=== PATIENT | male | born 1975 | race Two or more races ===

== ENCOUNTER 2020-05-22 16:39 | Emergency (ER) | payer MEDICARE, MEDICAID, SELFPAY ==
[2020-05-22 16:49] VITALS: BP 131/78; PULSE 99; RESP 16; TEMP 37.4; O2SAT 99; BMI 35.2
--- NOTE | 2020-05-22 16:56 | XR_ITS ---
EXAMINATION: XR CHEST CLINICAL INFORMATION: Chest pain COMPARISON: 08/13/2013 TECHNIQUE: Frontal view of the chest was obtained. FINDINGS: No significant abnormality is noted involving the heart, lungs, mediastinum, bony thorax or soft tissues. Some left basilar atelectasis is present. XR/XR chest 1V IMPRESSION: No acute intrathoracic disease.
--- NOTE | 2020-05-22 16:58 | ED.FEVER ---
HPI - Fever General Chief Complaint: Fever Stated Complaint: fever - [phone] Time Seen by Provider: 05/22/20 16:56 Source: patient Mode of arrival: ambulatory Limitations: no limitations History of Present Illness HPI Narrative: Subjective fevers, chills, body aches, dry cough, intermittent chest pain x 2 days. No SOB, leg swelling or pain. Has two coworkers who have similar symptoms and recently traveled. Worried about COVID exposure. MD elicited complaint: fever (subjective ) Onset (ago): day(s) Context: sick contacts Exacerbating factors: nothing Relieving factors: nothing Associated symptoms: chills, myalgias, cough and chest pain Treatments prior to arrival fever: none Related Data Previous Rx's Medication Instructions Recorded acetaminophen 650 mg PO Q6H PRN #20 cap 05/22/20 benzonatate [Tessalon Perles] 100 mg PO BID PRN #10 cap 05/22/20 ibuprofen 600 mg PO Q8H PRN #20 tab 05/22/20 Allergies Allergy/AdvReac Type Severity Reaction Status Date / Time No Known Allergies Allergy Unverified 04/10/20 15:05 Review of Systems Review of Systems: Yes all other systems are reviewed and are negative Constitutional: Constitutional: Reports no additional constitutional complaints, Reports body ache(s), Reports chills, Reports fever(s), Denies headache(s) and Denies weakness Eyes: Eyes: Reports no additional eye complaints and Denies change in vision ENT: Reports system reviewed and no additional complaints, except as documented, Denies dizziness, Denies headache(s), Denies nasal congestion, Denies nasal discharge and Denies neck pain Cardiovascular: Cardiovascular: Reports no additional cardiovascular complaints, Reports chest pain, Denies leg edema and Denies dyspnea Respiratory: Respiratory: Reports no additional respiratory complaints, Reports cough and Denies dyspnea Gastrointestinal: Gastrointestinal: Reports no additional gastrointestinal complaints, Denies abdominal pain, Denies diarrhea, Denies nausea and Denies vomiting Genitourinary: Genitourinary: Denies urinary incontinence Musculoskeletal: Musculoskeletal: Reports no additional musculoskeletal complaints, Denies back pain, Denies arthralgias, Denies joint swelling, Denies neck pain, Denies numbness and Denies tingling Integumentary/Breasts: Skin/Breast: Reports system reviewed and no additional complaints, except as docu and Denies rash Neurologic: Reports system reviewed and no additional complaints, except as documented, Denies Abnormal speech present, Denies dizziness, Denies headache(s), Denies numbness, Denies tingling and Denies weakness PMFSH Past Medical History Attestation statement: The following information was validated with the patient. Source: old records reviewed and obtained from family Medical History Hyperthyroidism No known health problems Social History Social History Alcohol intake: never Smoking Status: Smoker, status unknown Smoked in Last 30 Days: No Use of substances other than those prescribed or required for medical reasons: No Advance Directives: No Advance Directives Information Provided: No Physical Exam Vital Signs: Vital Signs: Vital Signs Temp Pulse Resp BP Pulse Ox 05/22/20 16:49 99.4 F 99 16 131/78 99 Body Mass Index 35.2 Const: General: cooperative, healthy appearing, comfortable and no acute distress Orientation/consciousness: patient oriented x3 Limitations: no limitations HENMT: Head: Yes normal to inspection Ears: hearing grossly normal bilaterally General nose exam: Normal external nose present Face and sinus: Yes normal facial exam Mouth: Normal oral and palatal mucosa present Throat: Yes posterior oropharynx normal Eyes: General: appearance normal, both eyes and all related structures Pupils: Equal, round and reactive pupils present Neck: Neck: Yes normal visual inspection Chest: Chest palpation & inspection: normal inspection of the chest and tenderness (central chest tender to palp, worsened with deep breathing/palpation/moveme) Resp: Effort & Inspection: normal respiratory effort Auscultation: clear to auscultation bilaterally Cardio: Rate: regular rate Rhythm: regular rhythm Peripheral pulses: Peripheral pulses 2+ throughout GI: Inspection: Yes normal to inspection Palpation (GI): Soft to palpation and nontender Auscultation: normal bowel sounds Back/Spine/Pelvis: Thoracic/Lumbar Spine: thoracic and lumbar spine normal to inspection Skin: General skin exam: no rashes or lesions noted Neuro: General: patient oriented x3, no focal motor deficits and normal sensation to monofilament Cranial nerves: Yes Equal, round and reactive pupils present Cognition (Neuro): normal cognition Speech: No Abnormal speech present Gait exam (Neuro): Normal gait present Motor exam (neuro): 11/26 motor strength present throughout Extrem: General: Yes normal to inspection Course Course Course Narrative: Cough, reproducible chest pain, subjective fevers, chills, body aches x 2 days with sick exposure at work. Will send COVID testing, check CXR and EKG. 174-CXR unremarkable. EKG unremarkable. Likely viral infection, chest wall strain secondary to coughing. Stable vital signs. Well appearing. Reviewed worrisome signs and symptoms of when to return to the emergency department. Comfortable discharge home. MDM - Fever MDM Narrative Medical decision making narrative: Viral syndrome, COVID infection, PNA, PE, ACS Likely viral syndrome. Considered COVID infection and testing is pending. Less likely pneumonia with unremarkable chest x-ray. Less likely PE with PERC score 0. Less likely ACS with unremarkable EKG, atypical symptoms not concerning for ACS (intermittent x 2 days, reproducible, MS on exam), age <45 and no cardiac risk factors. Medical Records Attestation: I reviewed the patient's medical records. Lab Data Attestation: I reviewed the patient's lab results. Imaging Data Chest x-ray: Attestation: I personally reviewed and interpreted this imaging study as follows: Radiologist's impression: EXAMINATION: XR CHEST CLINICAL INFORMATION: Chest pain COMPARISON: 08/13/2013 TECHNIQUE: Frontal view of the chest was obtained. FINDINGS: No significant abnormality is noted involving the heart, lungs, mediastinum, bony thorax or soft tissues. Some left basilar atelectasis is present. XR/XR chest 1V IMPRESSION: No acute intrathoracic disease. ECG Data ECG #1: Attestation: I personally reviewed and interpreted this ECG as follows: ECG interpretation date: 05/22/20 ECG interpretation time: 17:45 Interpretation: NSR, Normal NH, Normal QRS, Normal QT, early repolorization unchanged from previous 03/31/2019 Discharge Plan Discharge Clinical Impression: Viral infection Patient Disposition: Home, Self-Care Instructions: Viral Syndrome (ED) Additional Instructions: We have tested you today for COVID 19. Test results take 1-2 days and we will call you with the results negative or positive. Take tylenol or motrin if able as needed for pain or fever. Stay well hydrated with fluids like water, gatorade and/or powerade. Wash hands at home. If living with others try to self isolate if possible. If unable wear a mask around others in your home and wash hands frequently. If COVID test is positive you will need to self isolate for a total of 14 days from when your symptoms started. You may return to work sooner if testing is negative and all symptoms resolved >72 hours. You should return to the emergency department for severe shortness of breath, chest pain or fever which does not respond to both tylenol and motrin at home. Prescriptions: New ibuprofen 600 mg tablet 600 mg PO Q8H PRN (Reason: fever or pain) Qty: 20 RF: 0 acetaminophen 325 mg capsule 650 mg PO Q6H PRN (Reason: fever or pain) Qty: 20 RF: 0 benzonatate [Tessalon Perles] 100 mg capsule 100 mg PO BID PRN (Reason: cough) Qty: 10 RF: 0 Stand Alone Forms: Work/School Release
[2020-05-22] MEDS: Ibuprofen 600 MG TABLET PO (18:07)
== END 2020-05-22 18:22 | disposition home or self-care (01) ==
PROVIDERS: Nurse Practitioner Family; Emergency Provider Emergency Medicine; PCP Internal Medicine Endocrinology, Diabetes & Metabolism
DX: B34.9 Viral infection, unspecified (principal); Z20.828 Contact with and (suspected) exposure to other viral communicable diseases; R05 Cough
CPT/HCPCS: 71045; 99283; 99284; U0003

== ENCOUNTER 2020-10-18 21:24 | Emergency (ER) | payer MEDICARE, MEDICAID, SELFPAY ==
--- NOTE | 2020-10-18 21:49 | ED.URI ---
HPI - URI/Sore Throat General Chief Complaint: General Medical Stated Complaint: Covid symptoms Time Seen by Provider: 10/18/20 21:43 Source: patient Mode of arrival: ambulatory Limitations: no limitations History of Present Illness HPI Narrative: 45-year-old male with no significant past medical history presents with 1 day of sore throat, weakness, fatigue, fevers and chills. He has had multiple sick contacts. MD elicited complaint: fever, sore throat and rhinorrhea Onset (ago): day(s) (One) Consistency: constant Severity: moderate Description of mucous: clear Able to tolerate fluids by mouth: Yes Exacerbating factors: swallowing and speaking Relieving factors: nothing Context: sick contacts Associated symptoms: fever, chills and sore throat Treatments prior to arrival: none Related Data Previous Rx's Medication Instructions Recorded acetaminophen 650 mg PO Q6H PRN #20 cap 05/22/20 benzonatate [Tessalon Perles] 100 mg PO BID PRN #10 cap 05/22/20 ibuprofen 600 mg PO Q8H PRN #20 tab 05/22/20 amoxicillin-pot clavulanate 1 tab PO Q12H 10 Days #20 tab 10/18/20 [Augmentin] ibuprofen 600 mg PO Q6H PRN #60 tab 10/18/20 Allergies Allergy/AdvReac Type Severity Reaction Status Date / Time No Known Allergies Allergy Unverified 04/10/20 15:05 Review of Systems Review of Systems: Constitutional: positive Fever, positive Chills, positive fatigue, positive Malaise ENT/Mouth: positive sore throat, positive runny nose Eyes: No Discharge Cardiovascular: No Chest Pain, No SOB Respiratory: No Cough, No Sputum, No Wheezing, No Smoke Exposure, No Dyspnea Gastrointestinal: No Nausea, No Vomiting, No Diarrhea Genitourinary: no irregular bleeding, No Dysuria, No Urinary Frequency, No Hematuria, No Urinary Incontinence, No Urgency, No Flank Pain, Musculoskeletal: positive Myalgia Skin: No rash Neuro: No Headache Yes all other systems are reviewed and are negative [facility] Past Medical History Attestation statement: The following information was validated with the patient. Source: old records reviewed Medical History (Updated 10/18/20 @ 23:43 by Jewels Sotelo NP) Hyperthyroidism Social History Social History Alcohol intake: never Smoking Status: Light tobacco smoker Use of substances other than those prescribed or required for medical reasons: No Advance Directives: No Advance Directives Information Provided: No Physical Exam Vital Signs: Vital Signs: Last Vital Signs Temp 99 F 10/19/20 00:00 Pulse 101 H 10/19/20 00:00 Resp 16 10/19/20 00:00 BP 120/85 10/19/20 00:00 Pulse Ox 95 10/19/20 00:00 Body Mass Index 35.2 Appearance: Alert. Oriented X3. Moderate distress. Eyes: Pupils equal, round and reactive to light. ENT: Pharynx bilateral tonsillar swelling with exudates, and erythema. Bilateral tympanic membranes intact, no cervical lymphadenopathy noted. Neck: Normal inspection. Neck supple. No vertebral tenderness noted. CVS: Tachycardic heart rate and rhythm. Pulses normal. Respiratory: No respiratory distress. Lung sounds clear to auscultation all lobes. Abdomen: Soft and nontender. Skin: Skin warm and dry. Normal skin color. Normal skin turgor. Extremities: No lower extremity edema. Moves all extremities against resistance. Neuro: No motor deficit. No sensory deficit. No focal neural deficits. Cranial nerves 2-12 intact. Course Course Course Narrative: 45-year-old male presents with upper respiratory symptoms consistent with COVID-19 and or strep pharyngitis. Had pharyngeal erythema with bilateral tonsillar swelling with exudates. No cough noted. Centor scale 3. Test for and treat for strep pharyngitis. Will test for COVID-19. Patient is tachycardic at 122 and febrile, will give 1 L of fluids and Motrin with his Augmentin. Patient wants to wait for his COVID-19 test. Patient is strep positive. Patient is COVID negative. Patient verbalized understanding of and agrees plan care discharge home. MDM - URI/Sore Throat Differential Diagnosis Differential diagnosis: Likely upper respiratory infection, sinusitis, viral infection, bronchitis, influenza and pharyngitis Medical Records Attestation: I reviewed the patient's medical records. Lab Data Attestation: I reviewed the patient's lab results. Labs: Lab Results 10/18/20 Range/Units 22:38 Coronavirus (PCR) NEGATIVE (Negative) Influenza Type A (PCR) NEGATIVE (Negative) Influenza Type B (PCR) NEGATIVE (Negative) RSV RNA Qual (PCR) NEGATIVE (Negative) Discharge Plan Discharge Clinical Impression: Acute streptococcal pharyngitis, COVID-19 Patient Disposition: Home, Self-Care Instructions: Pharyngitis (ED), Strep Throat (ED), COVID-19 (Coronavirus Disease 2019) (ED) Additional Instructions: You evaluated for upper respiratory symptoms and sore throat. You tested positive for strep pharyngitis. Your COVID test was negative. Please take Augmentin twice a day as directed. Please complete the entire course of this medication. Use Tylenol and Motrin as needed for pain management. Thank you for choosing this emergency department for evaluation. Please follow-up with primary care physician as needed. Return to the emergency department for any new, concerning, or worsening symptoms. Prescriptions: New amoxicillin-pot clavulanate [Augmentin] 875-125 mg tablet 1 tab PO Q12H 10 Days Qty: 20 RF: 0 ibuprofen 600 mg tablet 600 mg PO Q6H PRN (Reason: fever or pain) Qty: 60 RF: 0 No Action ibuprofen 600 mg tablet 600 mg PO Q8H PRN (Reason: fever or pain) Qty: 20 RF: 0 acetaminophen 325 mg capsule 650 mg PO Q6H PRN (Reason: fever or pain) Qty: 20 RF: 0 benzonatate [Tessalon Perles] 100 mg capsule 100 mg PO BID PRN (Reason: cough) Qty: 10 RF: 0 Interventions: ED Discharge Assessment Last Done: 10/19/20 01:11 Discharge Date/Time: 10/19/20 01:13 Print Language: Georgian
[2020-10-18 21:50] VITALS: BP 121/79; PULSE 123; RESP 19; TEMP 38.1; O2SAT 97; BMI 35.2
[2020-10-18] MEDS: ondansetron HCL 4 MG/2 ML VIAL IVPUSH (22:45)
[2020-10-18] MEDS: 0.9 % Sodium Chloride 1,000 ML 999 ML IVCONT (22:45)
[2020-10-18] MEDS: Ibuprofen 600 MG TABLET PO (22:45)
[2020-10-18] MEDS: Amoxicillin/Potassium Clav 875 MG TABLET PO (22:45)
--- NOTE | 2020-10-18 22:48 | PC.NURSE ---
pt moved from nicolas bed to room 2 due to pts hr, manager cardiac applied pt sinus tach on monitor, vitals otherwise stable, iv inserted, pt medicated per order, respiratory panel obtained, throat culture obtained, will continue to monitor.
[2020-10-18 23:15] VITALS: PULSE 123
[2020-10-18 23:57] LABS: Influenza A PCR NEGATIVE (Negative); Influenza B PCR NEGATIVE (Negative); Resp Syncy Virus RNA Qual PCR NEGATIVE (Negative); SARS COV2 PCR INHOUSE NEGATIVE (Negative)
[2020-10-19] VITALS: BP 120/85; PULSE 101; RESP 16; TEMP 37.2; O2SAT 95
== END 2020-10-19 01:13 | disposition home or self-care (01) ==
PROVIDERS: Nurse Practitioner Family; Emergency Provider Emergency Medicine
DX: U07.1 COVID-19 (principal); J02.0 Streptococcal pharyngitis; R50.9 Fever, unspecified; M79.10 Myalgia, unspecified site
CPT/HCPCS: 0241U; 36415; 87880; 96365; 96375; 99284; J2405

== ENCOUNTER 2021-05-13 10:44 | Outpatient (REF) | payer MEDICARE, MEDICAID, SELFPAY ==
[2021-05-13 11:35] LABS: COVID-19 Test Negative (Negative)
== END 2021-05-13 10:45 | disposition home or self-care (01) ==
LOC: HO.LAB 10:44
PROVIDERS: Visit Provider Internal Medicine
DX: Z20.822 Contact with and (suspected) exposure to COVID-19 (principal)
CPT/HCPCS: 36415; 87635; C9803

== ENCOUNTER → 2021-07-14 13:26 | Outpatient (BNVA) | payer SELFPAY | PROVIDERS: Visit Provider Internal Medicine | DX: Z02.79 Encounter for issue of other medical certificate (principal) ==

== ENCOUNTER 2021-07-24 14:17 | Emergency (ER) | payer MEDICARE, MEDICAID, SELFPAY ==
[2021-07-24 15:00] LABS: COVID-19 Test Positive (Negative)
[2021-07-24 16:12] VITALS: BP 113/72; PULSE 102; RESP 18; TEMP 36.5; O2SAT 98
[2021-07-24 16:17] VITALS: BMI 33.5
--- NOTE | 2021-07-24 16:57 | ED_ITS ---
HPI - URI/Sore Throat General Chief Complaint: Upper Respiratory Symptoms Stated Complaint: fever body ache chills headache Time Seen by Provider: 07/24/21 14:34 Source: patient Mode of arrival: ambulatory Limitations: no limitations History of Present Illness HPI Narrative: 46-year-old male who presents emergency department for evaluation of viral illness with symptoms beginning yesterday (07/23/2021). The patient complains of a cough which is nonproductive, chest pain which is worse with breathing coughing, shortness of breath at rest but no dyspnea on exertion, body aches, fever, chills, nausea, and abdominal pain. The patient denied loss of sense of taste or smell, vomiting or diarrhea. The patient to get a home COVID- 19 test which was positive. He states that he felt the symptoms were getting worse he came to the emergency department for evaluation. Patient states that he had a [employer] COVID-19 vaccination approximately 1 year prior. Related Data Previous Rx's Medication Instructions Recorded acetaminophen 325 mg capsule 650 mg PO Q6H PRN #20 cap 05/22/20 benzonatate 100 mg capsule 100 mg PO BID PRN #10 cap 05/22/20 (Tessalon Perles) ibuprofen 600 mg tablet 600 mg PO Q8H PRN #20 tab 05/22/20 amoxicillin 875 mg-potassium 1 tab PO Q12H 10 Days #20 tab 10/18/20 clavulanate 125 mg tablet (Augmentin) ibuprofen 600 mg tablet 600 mg PO Q6H PRN #60 tab 10/18/20 ondansetron 4 mg disintegrating 4 mg PO Q6-8H PRN #14 tab 07/24/21 tablet Allergies Allergy/AdvReac Type Severity Reaction Status Date / Time No Known Allergies Allergy Verified 07/24/21 16:17 Review of Systems Review of Systems: Yes all other systems are reviewed and are negative Neurologic: Reports Abnormal speech present [facility] Past Medical History [facility] Narrative: Social history: The patient occasionally smokes cigarettes. He denies alcohol use. He denies drug use. Medical History Hyperthyroidism Social History Social History Alcohol intake: never Advance Directives: No Advance Directives Information Provided: No Physical Exam Vital Signs: Vital Signs: Last Vital Signs Temp 97.7 F 07/24/21 16:12 Pulse 102 H 07/24/21 16:12 Resp 18 07/24/21 16:12 BP 113/72 07/24/21 16:12 Pulse Ox 98 07/24/21 16:12 BMI result Body Mass Index 33.5 Const: General: cooperative, no acute distress, well developed, alert and awake Orientation/consciousness: oriented to person HENMT: Head: Yes normal to inspection, Yes normocephalic and Yes atraumatic Ears: hearing grossly normal bilaterally General nose exam: Normal external nose present Face and sinus: Yes normal facial exam Mouth: Normal oral and palatal mucosa present, lip normal, tongue normal, oropharynx normal and moist mucous membranes Throat: Yes posterior oropharynx normal, Yes tonsils normal and Yes uvula midline Eyes: General: appearance normal, both eyes and all related structures Eyelids: Yes eyelids normal Conjunctivae: conjunctivae normal Sclerae: s clerae normal Corneas: corneas normal Pupils: Equal, round and reactive pupils present Neck: Neck: Yes normal visual inspection, Yes no lymphadenopathy, Yes trachea midline and Yes supple Thyroid: Thyroid normal Lymphatic: no lymphadenopa thy noted Chest: Chest palpation & inspection: normal inspection of the chest and normal palpation of entire chest wall Resp: Effort & Inspection: normal respiratory effort and able to speak in complete sentences Auscultation: clear to auscultation bilaterally Cardio: Rate: regular rate Rhythm: regular rhythm Heart sounds: S1 normal heart sound present, S2 normal heart sound present and no murmurs GI: Inspection: Yes normal to inspection Palpation (GI): Soft to palpation, nontender and No hepatosplenomegaly present Auscultation: normal bowel sounds : General: Yes no CVA tenderness Back/Spine/Pelvis: Back: no CVA tenderness Thoracic/Lumbar Spine: thoracic and lumbar spine normal to inspection Skin: General skin exam: no rashes or lesions noted, no erythema and no jaundice Lesions: no lesions Rashes: no rashes Trauma: no lacerations or abrasions Wounds: no wounds Neuro: General: oriented to person, moves all extremities and no focal motor deficits Cranial nerves: Yes Equal, round and reactive pupils present Cognition (Neuro): normal cognition Speech: Abnormal speech present Motor exam (neuro): Motor abnormalities not present Extrem: General: Yes normal to inspection, Yes no pedal edema and Yes no calf tenderness Right upper extremity: normal to inspection Left upper extremi ty: normal to inspection Right lower extremity: normal to inspection Left lower extremity: normal to inspection Psych: Appearance: grossly normal Mental Status: mental status grossly normal Speech and movement: Normal speech and movement present Affect: normal affect Attitude: cooperative Thought process: Normal thought process present Insight: Good insight present (Psych) Course Course Course Narrative: 46-year-old male who presents with a viral-like illness x2 days, who tested COVID positive at home and COVID a positive here in the emergency department patient's vital signs revealed an elevated pulse of 102 otherwise normal with a respiratory rate of 18 and O2 saturation 90% on room air. Patient's physical examination was otherwise unremarkable. At this time I do not think that he has COVID pneumonia and I did discuss this with him. He was advised to take Tylenol and ibuprofen for fever and pain. He was prescribed Zofran for nausea and vomiting. The patient will be referred to the monoclonal infusion clinic. Patient was discharged home with verbal and printed instructions. MDM - URI/Sore Throat Lab Data Labs: Lab Results 07/24/21 Range/Units 14:45 COVID-19 ([facility]) Positive A (Negative) COVID-19 Clin Com See Note Discharge Plan Discharge Clinical Impression: COVID-19 virus infection Patient Disposition: Home, Self-Care Instructions: COVID-19 (Coronavirus Disease 2019) (ED) Additional Instructions: Your COVID-19 test was positive. Your O2 saturation on room air was 98% on room air which is reassuring. We do not admit people to the hospital unless they developed COVID-19 pneumonia and there O2 saturation oxygen level is below 90%. Take ibuprofen 200 mg pills, 3 pills every 6 hours as needed for pain or fever Take Tylenol (acetaminophen) 500 mg pills, 2 pills every 4 to 6 hours as needed for pain or fever Take Zofran ODT 4 mg pills, 1 pill dissolved in your mouth every 8 hours as needed for nausea and vomiting. I am referring you to the [facility]'s COVID-19 monoclonal infusion clinic. I emailed the form to the clinic. Please call the number on the bottom of the form to make sure they got the information and to help them get you on their sc hedule. Please return to the emergency department if he develops symptoms of pneumonia which include increased cough, increased chest pain which is worse with breathing, shortness of breath at rest and shortness of breath with walking/exertion. Follow-up with your doctor in 2 days. Please return to the emergency department if your symptoms get worse or if you develop any symptoms that are concerning to you. Prescriptions: New ondansetron 4 mg tablet,disintegrating 4 mg PO Q6-8H PRN (Reason: nausea and vomiting) Qty: 14 RF: 0 No Action ibuprofen 600 mg tablet 600 mg PO Q8H PRN (Reason: fever or pain) Qty: 20 RF: 0 acetaminophen 325 mg capsule 650 mg PO Q6H PRN (Reason: fever or pain) Qty: 20 RF: 0 benzonatate [Tessalon Perles] 100 mg capsule 100 mg PO BID PRN (Reason: cough) Qty: 10 RF: 0 amoxicillin-pot clavulanate [Augmentin] 875-125 mg tablet 1 tab PO Q12H 10 Days Qty: 20 RF: 0 ibuprofen 600 mg tablet 600 mg PO Q6H PRN (Reason: fever or pain) Qty: 60 RF: 0
[2021-07-24 17:43] VITALS: PULSE 100; RESP 18; O2SAT 98
== END 2021-07-24 17:43 | disposition home or self-care (01) ==
PROVIDERS: Physician Assistant; Emergency Provider Emergency Medicine Emergency Medical Services
DX: U07.1 COVID-19 (principal); R50.9 Fever, unspecified
CPT/HCPCS: 36415; 87635; 99282; 99283

== ENCOUNTER 2022-05-09 00:31 | Emergency (ER) | payer MEDICAID, SELFPAY ==
[2022-05-09 00:46] VITALS: BP 131/86; PULSE 102; RESP 20; TEMP 36.3; O2SAT 97; BMI 34.0
[2022-05-09 00:51] VITALS: BP 131/86; PULSE 100; RESP 18; TEMP 36.6; O2SAT 98
--- NOTE | 2022-05-09 00:58 | PC.NURSE ---
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 Sats 96% on RA- no SOB or difficulty breathing reported by pt. SRacheal Barriga MD in to assess pt. Awaiting new orders at this time.
[2022-05-09] MEDS: diphenhydrAMINE HCL 50 MG/ML VIAL IM (01:03)
--- NOTE | 2022-05-09 01:03 | ED.SKABFB ---
HPI - Skin/Abscess/Foreign Bdy General Chief complaint: Allergic Reaction Stated complaint: itching rash all over body Time Seen by Provider: 05/09/22 00:44 Source: patient Mode of arrival: ambulatory History of Present Illness HPI narrative: 47-year-old male was started on thyroid medication approximately 2 weeks ago comes in with a rash since last night that he states result in itchiness all over but he denies any difficulty breathing or swallowing. Patient denies any new exposure to soaps, creams, clothing and does endorse that he was working in the [employer] today. Related Data Previous Rx's Medication Instructions Recorded acetaminophen 325 mg capsule 650 mg PO Q6H PRN fever or pain 05/22/20 #20 caps benzonatate 100 mg capsule 100 mg PO BID PRN cough #10 caps 05/22/20 (Tessalon Perles) ibuprofen 600 mg tablet 600 mg PO Q8H PRN fever or pain 05/22/20 #20 tabs amoxicillin 875 mg-potassium 1 tab PO Q12H 10 days #20 tabs 10/18/20 clavulanate 125 mg tablet (Augmentin) ibuprofen 600 mg tablet 600 mg PO Q6H PRN fever or pain 10/18/20 #60 tabs ondansetron 4 mg disintegrating 4 mg PO Q6-8H PRN nausea and 07/24/21 tablet vomiting #14 tabs Allergies Allergy/AdvReac Type Severity Reaction Status Date / Time No Known Allergies Allergy Verified 07/24/21 16:17 Review of Systems Review of Systems: Pertinent positives and negatives as stated in HPI 10 point review of systems is otherwise negative. FORMERLY [facility] Past Medical History Source: nursing notes reviewed Medical History Hyperthyroidism Social History Social History Alcohol intake: never Patient Tobacco Use Status: Current someday Tobacco user Use of substances other than those prescribed or required for medical reasons: No Advance Directives: No Physical Exam Vital Signs: Vital Signs: Last Vital Signs Temp 97.8 F 05/09/22 00:51 Pulse 100 05/09/22 00:51 Resp 18 05/09/22 00:51 BP 131/86 05/09/22 00:51 Pulse Ox 98 05/09/22 00:51 O2 Del Method 05/09/22 00:51 BMI result Body Mass Index 34.0 VITAL SIGNS: Reviewed. GENERAL: Well developed, well nourished, in no acute distress. HEAD: Normocephalic/atraumatic EYES: PERRLA, EOMI EARS: Ext canals without abnormality, TMs non-bulging and non-erythematous NOSE: Nares patent bilateral OROPHARYNX: no oral lesions noted, posterior pharynx clear and non-erythematous without noted tonsillar enlargement/erythema/exudates, no facial/lip/tongue swelling NECK: Supple, no adenopathy LUNGS: No stridor, Normal breath sounds. No adventitious sounds or accessory muscle use. SpO2<98> CARDIOVASCULAR: Regular rate and rhythm without noted murmurs ABDOMEN: Soft, non-tender, non-distended with bowel sounds. SKIN: Inspection of the skin reveals there is rash noted to mid upper back, right AC, a few scattered areas at ankles NEUROLOGIC: Alert and oriented x 4. Strength and sensation to light touch were grossly intact x 4. Course Course Course Narrative: 47-year-old male with history and clinical presentation that appears more consistent with possible poison luda exposure as the distribution is inconsistent with a hives reaction and also not consistent with contact dermatitis. On re-evaluation patient remains without evidence of angioedema or anaphylaxis and the rash has completely resolved with the Benadryl. He was instructed to continue taking [id number] Benadryl for the next couple of days and to use caution as there is still high clinical suspicion that this may be a poison luda. He is otherwise discharged home in stable condition. Discharge Plan Discharge Clinical Impression: Urticaria Patient Disposition: Home, Self-Care Instructions: Urticaria (ED) Additional Instructions: 1. Continue to use [id number] Benadryl the next 24-48 hours. 2. Try to avoid scratching as this can transfer bacteria from your finger nails on tear skin. Return to the ER for worsening symptoms. Prescriptions: No Action ibuprofen 600 mg tablet 600 mg PO Q8H PRN (Reason: fever or pain) Qty: 20 0RF acetaminophen 325 mg capsule 650 mg PO Q6H PRN (Reason: fever or pain) Qty: 20 0RF benzonatate [Tessalon Perles] 100 mg capsule 100 mg PO BID PRN (Reason: cough) Qty: 10 0RF amoxicillin-pot clavulanate [Augmentin] 875-125 mg tablet 1 tab PO Q12H 10 Days Qty: 20 0RF ibuprofen 600 mg tablet 600 mg PO Q6H PRN (Reason: fever or pain) Qty: 60 0RF ondansetron 4 mg tablet,disintegrating 4 mg PO Q6-8H PRN (Reason: nausea and vomiting) Qty: 14 0RF
--- NOTE | 2022-05-09 01:06 | PC.NURSE ---
Administered 50mg IM Benadryl to pt.
== END 2022-05-09 02:48 | disposition home or self-care (01) ==
PROVIDERS: Emergency Provider Student in an Organized Health Care Education/Training Program
DX: L50.0 Allergic urticaria (principal); Z79.899 Other long term (current) drug therapy
CPT/HCPCS: 96372; 99284; J1200

== ENCOUNTER → 2023-06-06 10:03 | Outpatient (BNVA) | payer SELFPAY | PROVIDERS: Visit Provider Physician Assistant Medical | DX: Z02.79 Encounter for issue of other medical certificate (principal) ==

== ENCOUNTER → 2024-03-13 12:02 | Outpatient (BNVA) | payer OTHER, SELFPAY | PROVIDERS: Visit Provider Physician Assistant Medical | DX: T63.441A Toxic effect of venom of bees, accidental (unintentional), initial encounter (principal); M54.2 Cervicalgia | CPT/HCPCS: 99204 ==

== ENCOUNTER 2024-06-26 12:50 | Outpatient (AMB) | payer OTHER, SELFPAY ==
--- NOTE | 2024-06-26 13:05 | AM.OFFWIN_ITS ---
Intake Vital Signs 06/26/24 13:25 Weight 245 lb BP 124/82 Blood Pressure Location Lt brachial Position Sitting Pulse 84 Pulse Source Pulse Oximeter Temp 98.4 F Temp Source Oral Pulse Oximetry (%) 100 Oxygen Delivery Method Room Air Intake Visit Reasons: [employer] RECEIVED-body ache, burn in urine [phone] Intake Note: Patient here for body aches, dizziness and burning when urinating. Patient Tobacco Use Status: Current someday Tobacco user Allergies No Known Allergies Allergy (Verified 06/26/24 13:06) Do you need a note to return to daycare/school/sports/work: No HPI HPI Comments History of Present Illness Details History of Present Illness The patient is a 49-year-old male presenting with chest pains and symptoms suggestive of a urinary tract infection. The patient describes experiencing frequent urination and a burning sensation following urination. The patient also notes changes in stool consistency and the presence of dark urine, but denies the presence of hematuria. He confirms that these urinary symptoms have occurred in the past, identifying this as potentially the second episode of similar symptoms. These symptoms have made the patient feel sluggish and unwell. Despite feeling unwell, the patient's vitals at the visit were stable, with a temperature of 98.4?F and a heart rate of 84 beats per minute. The patient has been using DayQuil in an attempt to mitigate symptoms. He expresses concern about possibly having transmitted bacteria from his , but he has not engaged in extramarital sexual activity. The patient describes feeling chilly but denies experiencing yu fevers. FORMERLY [facility] Medical History Hyperthyroidism Social History Alcohol intake: never Patient Tobacco Use Status: Current someday Tobacco user Review of Systems Const All systems reviewed & are unremarkable except as noted in HPI and below Physical Exam Vital Signs: Last Vital Signs Temp 98.4 F 06/26/24 13:25 Pulse 84 06/26/24 13:25 BP 124/82 06/26/24 13:25 Pulse Ox 100 06/26/24 13:25 Oxygen Delivery Method Room Air 06/26/24 13:25 Const General: cooperative, healthy appearing, comfortable and no acute distress Orientation/consciousness: patient oriented x3 HEENT Head: Yes normal to inspection Ears: hearing grossly normal bilaterally General nose exam: Normal external nose present Face and sinus: Yes normal facial exam Neck Neck: Yes normal visual inspection, Yes trachea midline and Yes supple Resp Effort & Inspection: normal respiratory effort and able to speak in complete sentences GI Inspection: Yes normal to inspection Palpation (GI): Soft to palpation and Tenderness to palpation present (GI) suprapubicly General: Yes no CVA tenderness Back/Spine/Pelvis Back: no CVA tenderness Skin General skin exam: no rashes or lesions noted Neuro General: patient oriented x3 Psych Appearance: grossly normal Speech and movement: Normal speech and movement present Attitude: cooperative Thought process: Normal thought process present Insight: Good insight present (Psych) Judgement: Good judgement present (Psych) Assessment & Plan Assessment & Plan (1) UTI (urinary tract infection): Code(s): N39.0 - Urinary tract infection, site not specified Qualifiers: Urinary tract infection type: acute cystitis Hematuria presence: with hematuria Qualified Code(s): N30.01 - Acute cystitis with hematuria Plan: UA + luek est and + nitrites and + blood. Sent a urine sample for culture to identify the specific bacteria and ensure appropriate antibiotic coverage. Instructed the patient to complete the antibiotic course and observe symptom resolution in a week. If symptoms persist, follow up with primary care provider. Patient was informed and verbally consented to the use of an ambient scribe for clinic note documentation during this visit. Orders: Orders Urine Culture Today N39.0 - Urinary tract infection, site not specified Medications: New cefuroxime axetil 500 mg PO Q12H 10 tabs 0RF Discontinued benzonatate (Tessalon Perles) Discontinued Reason: Patient Completed Course 100 mg PO BID PRN 10 caps 0RF cough amoxicillin-pot clavulanate 875-125 mg (Augmentin) Discontinued Reason: Patient Completed Course 1 tab PO Q12H 10 days 20 tabs 0RF ibuprofen Discontinued Reason: Duplicate 600 mg PO Q6H PRN 60 tabs 0RF fever or pain ondansetron Discontinued Reason: Patient no longer taking 4 mg PO Q6-8H PRN 14 tabs 0RF nausea and vomiting Coding Level of Care Code New Pt Level 3 (16786) Diagnoses Acute cystitis with hematuria N30.01 Urinary tract infection type: acute cystitis Hematuria presence: with hematuria
[2024-06-26 13:25] VITALS: BP 124/82; PULSE 84; TEMP 36.9; O2SAT 100
== END 2024-06-26 14:17 | disposition home or self-care (01) ==
PROVIDERS: Visit Provider Physician Assistant
DX: N30.01 Acute cystitis with hematuria (principal); Z13.9 Encounter for screening, unspecified

== ENCOUNTER 2024-06-26 12:50 | Outpatient (REF) | payer OTHER, SELFPAY | END 2024-06-26 12:51 | disposition home or self-care (01) | LOC: HO.LNP 12:50 | PROVIDERS: Visit Provider Physician Assistant | DX: N39.0 Urinary tract infection, site not specified (principal) | CPT/HCPCS: 81003; 87086; 87088; 87186; 99202 ==

== ENCOUNTER 2025-02-18 15:54 | Emergency (ER) | payer OTHER, SELFPAY ==
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
[2025-02-18 16:22] VITALS: BP 155/79; PULSE 110; RESP 18; TEMP 36.2; O2SAT 96; BMI 33.4
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
[2025-02-18 20:12] VITALS: BP 155/79; PULSE 110; RESP 18; TEMP 36.2; O2SAT 96
== END 2025-02-18 20:13 | disposition home or self-care (01) ==
PROVIDERS: Emergency Provider Emergency Medicine Emergency Medical Services
DX: S00.83XA Contusion of other part of head, initial encounter (principal); V43.52XA Car driver injured in collision with other type car in traffic accident, initial encounter; Y93.89 Activity, other specified; Y92.414 Local residential or business street as the place of occurrence of the external cause; Y99.9 Unspecified external cause status
CPT/HCPCS: 70486; 99282; 99284

== ENCOUNTER → 2025-02-18 16:30 | Outpatient (BNV) | payer OTHER, SELFPAY | PROVIDERS: Visit Provider Radiology Diagnostic Radiology | DX: S09.93XA Unspecified injury of face, initial encounter (principal) | CPT/HCPCS: 70486 ==

== ENCOUNTER → 2025-05-31 15:12 | Outpatient (BNVA) | payer OTHER, SELFPAY | PROVIDERS: Visit Provider Physician Assistant Medical | DX: Z02.79 Encounter for issue of other medical certificate (principal) ==